=== PATIENT | female | born 1935 | race Caucasian/White ===

== ENCOUNTER 2018-12-24 15:23 | Inpatient (IN) | payer MEDICARE ==
[~2018-12-24] VITALS: Ht 152.4 cm; Wt 64.1 kg
[2018-12-24] MEDS ORDERED: MORPHINE SULFATE 4 MG/ML, 1ML ONE (15:41)
--- NOTE | 2018-12-24 15:56 | NUR ---
Pt medicated per emar, 5 rights observed, clothing removed, radiology notified pt ready
[2018-12-24] MEDS ORDERED: MORPHINE SULFATE 4 MG/ML, 1ML IVPush ONE (16:00)
[2018-12-24] MEDS ORDERED: PLEASE ENTER ALLERGIES MC SCH (16:00)
[2018-12-24] MEDS ORDERED: PLEASE ENTER HEIGHT AND WEIGHT MC SCH (16:00)
[2018-12-24] MEDS ORDERED: SODIUM CHLORIDE FLUSH 10ML SYR IVF ONE (16:00)
[2018-12-24 16:08] LABS: INTERNATIONAL NORMALIZED RATIO 0.96 (0.93-1.1); PROTHROMBIN TIME 10.1 Seconds (9.6-11.5)
[2018-12-24 16:09] LABS: ALANINE AMINOTRANSFERASE 12 U/L (12-78); ALBUMIN 3.5 g/dL (3.4-5.0); ANION GAP 7 mmol/L (5-15); CALCIUM 8.9 mg/dL (8.5-10.1); CHLORIDE 107 mmol/L (98-107); CREATININE 1.32 mg/dL (0.55-1.02)
[2018-12-24 16:12] LABS: ALKALINE PHOSPHATASE 82 U/L (45-117); BILIRUBIN,TOTAL 0.2 mg/dL (0.2-1.0); TOTAL PROTEIN 6.7 g/dL (6.4-8.2)
--- NOTE | 2018-12-24 16:15 | NUR ---
Pt to radiology, will place on pacer pads when back to room, code card at bedside, pt found to be in arrhythmia, possible second degree block. Hr remains above 60bpm, pt denies any cp, dizziness, pt insists she did not pass out and fall but instead she tripped and fell today.
--- NOTE | 2018-12-24 16:23 | NUR ---
Pt back from radiology, pacer pads placed on pt. Pt requesting more pain meds, aware.
[2018-12-24] MEDS ORDERED: HYDROmorphone 2 MG/ML, 1ML ONE (16:34)
[2018-12-24 16:39] LABS: BASOPHILS # (AUTO) 0.03 x10^3/uL (0-0.1); BASOPHILS % (AUTO) 0 % (0-1); EOSINOPHILS # (AUTO) 0.05 x10^3/uL (0-0.4); EOSINOPHILS % (AUTO) 0 % (1-7); LYMPHOCYTES # (AUTO) 1.42 x10^3/uL (1-3.4); LYMPHOCYTES % (AUTO) 11 % (22-44); MD NO; MEAN CORPUSCULAR HEMOGLOBIN 32.3 pg (27.0-34.8); MEAN CORPUSCULAR HGB CONC 33.3 g/dL (32.4-35.8); MEAN CORPUSCULAR VOLUME 96.8 fL (80-100); MEAN PLATELET VOLUME 7.7 fL (7.4-10.4); MONOCYTES % (AUTO) 2 % (2-9); NEUTROPHILS # (AUTO) 10.88 x10^3/uL (1.8-6.8); NEUTROPHILS % (AUTO) 87 % (42-75); PLATELET COUNT 367 x10^3/uL (130-400); RED CELL DISTRIBUTION WIDTH 13.5 % (9.6-15.2)
--- NOTE | 2018-12-24 16:42 | NUR ---
Pt medicated for 10/10 pain per emar, family at bedside, pt reports slightly decreased pain after pain meds.
[2018-12-24] MEDS ORDERED: HYDROmorphone 1 MG/ML, 1ML INJ IV ONE (17:00)
[2018-12-24 17:07] LABS: TROPONIN I < 0.015 ng/mL (0.000-0.045)
--- NOTE | 2018-12-24 17:16 | NUR ---
Pt not tolerating arm splint application, aware, ok to hold on splint, no more pain meds ordered in ED, floor RN notified, will try and have hospitalist orders in prior to transport for pain med administration on floor.
--- NOTE | 2018-12-24 17:16 | NUR ---
Report to [facility].
[2018-12-24] MEDS ORDERED: ONDANSETRON ODT 4 MG PO PRN (18:00)
[2018-12-24] MEDS ORDERED: hydrALAzine 20 MG/ML, 1ML IVPush PRN (18:00)
[2018-12-24] MEDS ORDERED: ACETAMINOPHEN 325 MG TABLET PO PRN (18:00)
[2018-12-24] MEDS ORDERED: POLYETHYLENE GLYCOL 17 GM PACKET PO PRN (18:00)
[2018-12-24] MEDS ORDERED: ONDANSETRON 2MG/ML, 2ML IVPush PRN (18:00)
[2018-12-24] MEDS ORDERED: DOCUSATE 100 MG CAPSULE PO PRN (18:00)
[2018-12-24] MEDS ORDERED: PROMETHAZINE 25 MG/ML, 1ML IM PRN (18:00)
[2018-12-24] MEDS ORDERED: BISACODYL 10 MG SUPP PR PRN (18:00)
--- NOTE | 2018-12-24 18:00 | NUR ---
Cardiology at bedside, pt rhythm in obv a-fib for approx 1 min on monitor.
[2018-12-24] MEDS ORDERED: LISI5TAB7 PO (18:03)
[2018-12-24] MEDS: morphine SULFATE 10 MG/ML, 1ML IVPush PRN ×4 (18:16→23:59)
[2018-12-24 18:26] VITALS: BP 159/62
[2018-12-24 18:37] LABS: FREE T4 (FREE THYROXINE) 1.11 ng/dL (0.76-1.46)
[2018-12-24 18:41] LABS: THYROID STIMULATING HORMONE 3.68 mIU/L (0.358-3.740)
[2018-12-24 19:03] LABS: HEMOGLOBIN A1C 4.2 % (4.2-6.3)
[2018-12-24] MEDS: HYDROcodone/APAP 5/325 TABLET PO PRN ×2 (19:53→23:59)
[2018-12-24] MEDS: SODIUM CHLORIDE 0.9% 1,000 ML IV SCH (20:03)
[2018-12-24] MEDS: PANTOPRAZOLE 40 MG IV IVPush SCH (20:11)
[2018-12-24] MEDS ORDERED: PANT20TA2 PO (20:22)
[2018-12-24] MEDS ORDERED: FLUO10CA13 PO (20:22)
[2018-12-25 02:18] VITALS: BP 130/79
[2018-12-25] MEDS: morphine SULFATE 10 MG/ML, 1ML IVPush PRN ×2 (03:08→07:10)
[2018-12-25] MEDS: HYDROcodone/APAP 5/325 TABLET PO PRN ×2 (05:03→09:16)
[2018-12-25] MEDS: SODIUM CHLORIDE 0.9% 1,000 ML IV SCH (05:03)
[2018-12-25 05:26] LABS: ALBUMIN 2.9 g/dL (3.4-5.0); ANION GAP 5 mmol/L (5-15); CALCIUM 7.8 mg/dL (8.5-10.1); CHLORIDE 114 mmol/L (98-107)
[2018-12-25 05:28] LABS: MEAN CORPUSCULAR HEMOGLOBIN 35.9 pg (27.0-34.8); MEAN CORPUSCULAR HGB CONC 34.6 g/dL (32.4-35.8); MEAN CORPUSCULAR VOLUME 103.5 fL (80-100); MEAN PLATELET VOLUME 7.5 fL (7.4-10.4); PLATELET COUNT 296 x10^3/uL (130-400); RED BLOOD COUNT 2.22 x10^6/uL (3.82-5.3); RED CELL DISTRIBUTION WIDTH 13.4 % (9.6-15.2)
[2018-12-25 05:32] LABS: ALANINE AMINOTRANSFERASE 13 U/L (12-78); ALKALINE PHOSPHATASE 62 U/L (45-117); BILIRUBIN,TOTAL 0.6 mg/dL (0.2-1.0); CHOL/HDL RATIO 2.1; CHOLESTEROL, TOTAL 138 mg/dL (140-239); CREATININE 0.98 mg/dL (0.55-1.02); HDL CHOL % 49 % (28-40); HDL CHOLESTEROL (DIRECT) 67 mg/dL (40-60); LDL CHOLESTEROL,CALCULATED 61 mg/dL (54-169); LDL/HDL RATIO 0.9 (0.5-3.0); TOTAL PROTEIN 5.4 g/dL (6.4-8.2); TRIGLYCERIDES 49 mg/dL (50-200); VLDL CHOLESTEROL 10 mg/dL (0-25)
[2018-12-25 06:10] LABS: BASOPHILS # (AUTO) 0.03 x10^3/uL (0-0.1); BASOPHILS % (AUTO) 0 % (0-1); EOSINOPHILS # (AUTO) 0.01 x10^3/uL (0-0.4); EOSINOPHILS % (AUTO) 0 % (1-7); LYMPHOCYTES # (AUTO) 1.07 x10^3/uL (1-3.4); LYMPHOCYTES % (AUTO) 12 % (22-44); MD SCAN; MONOCYTES # (AUTO) 0.79 x10^3/uL (0.2-0.8); MONOCYTES % (AUTO) 9 % (2-9); NEUTROPHILS # (AUTO) 6.82 x10^3/uL (1.8-6.8); NEUTROPHILS % (AUTO) 78 % (42-75)
[2018-12-25 08:02] VITALS: BP 101/55
[2018-12-25] MEDS ORDERED: LISINOPRIL 5 MG TABLET PO SCH (09:00)
[2018-12-25] MEDS ORDERED: FLUOXETINE 10 MG CAP PO SCH (09:00)
[2018-12-25] MEDS ORDERED: TRANEXAMIC ACID 100 MG/ML, 10ML ONE (11:40)
[2018-12-25] MEDS ORDERED: SUCCINYLCHOLINE 20 MG/ML, 10ML ONE (12:19)
[2018-12-25] MEDS ORDERED: ROCURONIUM 10MG/ML,5ML ONE (12:19)
[2018-12-25] MEDS ORDERED: PHENYLEPHRINE 10 MG/ML ONE (12:19)
[2018-12-25] MEDS ORDERED: FENTANYL PF 250 MCG/5ML ONE (12:20)
[2018-12-25] MEDS ORDERED: ONDANSETRON 2MG/ML, 2ML IV PRN ×2 (13:30→23:00)
[2018-12-25] MEDS ORDERED: hydrALAzine 20 MG/ML, 1ML IV PRN (13:30)
[2018-12-25] MEDS ORDERED: MORPHINE SULFATE 4 MG/ML, 1ML IVPush PRN (13:30)
[2018-12-25] MEDS ORDERED: PROMETHAZINE 25 MG/ML, 1ML IV PRN (13:30)
[2018-12-25] MEDS ORDERED: OXYcodone 5 MG/5 ML ORAL.SOL UDC PO PRN (13:30)
[2018-12-25] MEDS ORDERED: MIDAZOLAM 1 MG/ML, 2ML IV PRN (13:30)
[2018-12-25] MEDS ORDERED: LABETALOL 5MG/ML, 20ML IV PRN (13:30)
[2018-12-25] MEDS ORDERED: MEPERIDINE/PF 25MG/0.5ML IVPush PRN (13:30)
[2018-12-25] MEDS ORDERED: EPHEDRINE 50 MG/ML, 1ML IVPush PRN (13:30)
[2018-12-25] MEDS ORDERED: DIAZEPAM 5 MG/ML, 2ML IVPush PRN (13:30)
[2018-12-25] MEDS ORDERED: ALBUTEROL SULFATE 2.5 MG/3 ML NPPB PRN (13:30)
[2018-12-25] MEDS ORDERED: PROMETHAZINE 12.5 MG SUPP PR PRN (13:30)
[2018-12-25] MEDS ORDERED: HALOPERIDOL 5 MG/ML IV PRN (13:30)
[2018-12-25] MEDS ORDERED: ONDANSETRON ODT 8 MG PO PRN (13:30)
[2018-12-25] MEDS ORDERED: CALCIUM CHLORIDE 10%, 10ML SYR ONE (13:40)
[2018-12-25] MEDS ORDERED: PROPOFOL 10 MG/ML, 20ML ONE (13:41)
[2018-12-25] MEDS ORDERED: GLYCOPYRROLATE 0.2MG/1ML, 5ML ONE (13:41)
[2018-12-25] MEDS ORDERED: DEXAMETHASONE 4 MG/ML, 1ML ONE (13:41)
[2018-12-25] MEDS ORDERED: ONDANSETRON 2MG/ML, 2ML ONE (13:41)
[2018-12-25] MEDS ORDERED: CEFAZOLIN 1,000 MG ONE (13:41)
[2018-12-25] MEDS ORDERED: NALOXONE 0.4 MG/ML, 1ML ONE (15:58)
[2018-12-25] MEDS ORDERED: FENTANYL PF 100 MCG/2ML ONE (16:13)
[2018-12-25] MEDS ORDERED: OXYcodone 5 MG/5 ML ORAL.SOL UDC ONE (16:14)
[2018-12-25] MEDS ORDERED: HYDROmorphone 2 MG/ML, 1ML ONE (16:14)
[2018-12-25] MEDS: FENTANYL PF 100 MCG/2ML IV PRN ×2 (16:46→16:52)
[2018-12-25] MEDS: HYDROmorphone 2 MG/ML, 1ML IVPush PRN ×3 (17:03→17:21)
[2018-12-25] MEDS ORDERED: ALBUTEROL SULFATE 2.5 MG/3 ML ONE (19:10)
[2018-12-25] MEDS ORDERED: EPHEDRINE 50 MG/ML, 1ML ONE (19:11)
[2018-12-25] MEDS: PANTOPRAZOLE 40 MG IV IVPush SCH (21:43)
[2018-12-25 21:53] VITALS: BP_SYST 80; BP_SYST 84; BP_SYST 85; BP_DIAS 42; BP_DIAS 46; BP_DIAS 54
[2018-12-25 22:11] VITALS: BP 96/57
[2018-12-25] MEDS ORDERED: ALUMINUM/MAG/SIMETHICONE 30 ML UDC PO PRN (23:00)
[2018-12-25] MEDS ORDERED: MAGNESIUM HYDROXIDE 8%, 30ML UDC PO PRN (23:00)
[2018-12-25] MEDS ORDERED: ACETAMINOPHEN 325 MG TABLET PO PRN (23:00)
[2018-12-25] MEDS ORDERED: DIPHENHYDRAMINE 25 MG CAPSULE PO PRN (23:00)
[2018-12-25] MEDS: D5%-LACTATED RINGERS 1,000 ML IV SCH (23:00)
[2018-12-25] MEDS ORDERED: LACTATED RINGERS 500 ML IVBOLUS ONE (23:00)
[2018-12-25] MEDS ORDERED: SENNA/DOCUSATE TABLET PO PRN (23:00)
[2018-12-25] MEDS ORDERED: BISACODYL 10 MG SUPP PR PRN (23:00)
[2018-12-25] MEDS ORDERED: HYDROmorphone 2 MG/ML, 1ML IVPush PRN (23:00)
[2018-12-25] MEDS: CEFAZOLIN PMX 2GM/50ML 50 ML IVPB SCH (23:04)
[2018-12-25 23:33] LABS: ALBUMIN 2.7 g/dL (3.4-5.0); ANION GAP 6 mmol/L (5-15); CALCIUM 8.2 mg/dL (8.5-10.1); CHLORIDE 113 mmol/L (98-107); CREATININE 1.47 mg/dL (0.55-1.02)
[2018-12-26] MEDS: HYDROcodone/APAP 7.5-325MG/15ML UDC PO PRN (01:44)
[2018-12-26 01:59] VITALS: BP 110/69
[2018-12-26] MEDS: ALBUTEROL SULFATE 2.5 MG/3 ML NPPB SCH ×3 (06:00→12:00)
[2018-12-26] MEDS: D5%-LACTATED RINGERS 1,000 ML IV SCH ×3 (06:14→23:00)
[2018-12-26 06:19] LABS: MEAN CORPUSCULAR HEMOGLOBIN 33.5 pg (27.0-34.8); MEAN CORPUSCULAR HGB CONC 33.9 g/dL (32.4-35.8); MEAN CORPUSCULAR VOLUME 98.8 fL (80-100); MEAN PLATELET VOLUME 7.9 fL (7.4-10.4); PLATELET COUNT 211 x10^3/uL (130-400); RED BLOOD COUNT 2.37 x10^6/uL (3.82-5.3); RED CELL DISTRIBUTION WIDTH 13.4 % (9.6-15.2)
[2018-12-26 06:40] LABS: BASOPHILS # (AUTO) 0.01 x10^3/uL (0-0.1); BASOPHILS % (AUTO) 0 % (0-1); EOSINOPHILS % (AUTO) 0 % (1-7); LYMPHOCYTES # (AUTO) 0.72 x10^3/uL (1-3.4); LYMPHOCYTES % (AUTO) 8 % (22-44); MD SCAN; MONOCYTES # (AUTO) 0.86 x10^3/uL (0.2-0.8); MONOCYTES % (AUTO) 10 % (2-9); NEUTROPHILS # (AUTO) 7.07 x10^3/uL (1.8-6.8); NEUTROPHILS % (AUTO) 82 % (42-75)
[2018-12-26] MEDS: CEFAZOLIN PMX 2GM/50ML 50 ML IVPB SCH (07:13)
[2018-12-26] MEDS: OXYcodone 5 MG/5 ML ORAL.SOL UDC PO PRN ×3 (07:13→16:41)
[2018-12-26 08:07] VITALS: BP 108/67
[2018-12-26] MEDS ORDERED: BUDESONIDE 0.5 MG/2 ML INHA NPPB SCH (09:00)
[2018-12-26] MEDS: DOCUSATE 100 MG CAPSULE PO SCH ×2 (09:39→21:00)
[2018-12-26] MEDS: MULTIVITAMINS/MINERALS TABLET PO SCH (09:39)
[2018-12-26 12:55] LABS: BASOPHILS # (AUTO) 0.02 x10^3/uL (0-0.1); BASOPHILS % (AUTO) 0 % (0-1); EOSINOPHILS # (AUTO) 0.01 x10^3/uL (0-0.4); EOSINOPHILS % (AUTO) 0 % (1-7); LYMPHOCYTES # (AUTO) 0.86 x10^3/uL (1-3.4); LYMPHOCYTES % (AUTO) 9 % (22-44); MD NO; MEAN CORPUSCULAR HEMOGLOBIN 33.5 pg (27.0-34.8); MEAN CORPUSCULAR HGB CONC 33.7 g/dL (32.4-35.8); MEAN CORPUSCULAR VOLUME 99.3 fL (80-100); MEAN PLATELET VOLUME 7.6 fL (7.4-10.4); MONOCYTES # (AUTO) 0.74 x10^3/uL (0.2-0.8); MONOCYTES % (AUTO) 8 % (2-9); NEUTROPHILS # (AUTO) 7.66 x10^3/uL (1.8-6.8); NEUTROPHILS % (AUTO) 83 % (42-75); PLATELET COUNT 248 x10^3/uL (130-400); RED BLOOD COUNT 2.53 x10^6/uL (3.82-5.3)
[2018-12-26 13:04] LABS: ANION GAP 7 mmol/L (5-15); CALCIUM 8.2 mg/dL (8.5-10.1); CHLORIDE 110 mmol/L (98-107); CREATININE 1.41 mg/dL (0.55-1.02)
[2018-12-26 13:47] VITALS: BP 111/65
[2018-12-26] MEDS ORDERED: ALBUTEROL SULFATE 2.5 MG/3 ML NPPB PRN (14:00)
[2018-12-26 16:20] VITALS: BP 146/80
[2018-12-26 19:00] VITALS: BP 109/67
[2018-12-27 02:00] VITALS: BP 141/79
[2018-12-27 05:20] LABS: ANION GAP 7 mmol/L (5-15); CALCIUM 8.4 mg/dL (8.5-10.1); CHLORIDE 110 mmol/L (98-107); CREATININE 1.23 mg/dL (0.55-1.02)
[2018-12-27] MEDS: OXYcodone 5 MG/5 ML ORAL.SOL UDC PO PRN (05:21)
[2018-12-27 06:01] LABS: MEAN CORPUSCULAR HEMOGLOBIN 33.4 pg (27.0-34.8); MEAN CORPUSCULAR HGB CONC 33.9 g/dL (32.4-35.8); MEAN CORPUSCULAR VOLUME 98.5 fL (80-100); MEAN PLATELET VOLUME 7.7 fL (7.4-10.4); PLATELET COUNT 215 x10^3/uL (130-400); RED BLOOD COUNT 2.45 x10^6/uL (3.82-5.3); RED CELL DISTRIBUTION WIDTH 13.9 % (9.6-15.2)
[2018-12-27 06:24] LABS: MD YES
[2018-12-27 06:26] LABS: BAND#(MANUAL) 0.31 x10^3/uL; BANDS%(MANUAL) 4 % (0-7); LYMPH#(MANUAL) 0.78 x10^3/uL (1-3.4); LYMPHS% (MANUAL) 10 % (22-44); MONOS#(MANUAL) 0.47 x10^3/uL (0.3-2.7); MONOS% (MANUAL) 6 % (2-9); SEG#(MANUAL) 6.24 x10^3/uL (1.8-6.8); SEGS% (MANUAL) 80 % (42-75)
[2018-12-27 06:27] LABS: <RBC MORPHOLOGY> NORMAL; TOXIC GRAN 1+
[2018-12-27 06:28] LABS: <PLATELET ESTIMATE> ADEQUATE; <PLT MORPHOLOGY> NORMAL PLT MORPH
[2018-12-27 06:36] VITALS: BP 93/57
[2018-12-27] MEDS ORDERED: MAGNESIUM SULFATE 3 GM in SODIUM CHLORIDE 0.9% 100 ML IV ONE (07:00)
[2018-12-27] MEDS: D5%-LACTATED RINGERS 1,000 ML IV SCH ×3 (07:00→23:00)
[2018-12-27] MEDS: DOCUSATE 100 MG CAPSULE PO SCH ×2 (08:43→20:43)
[2018-12-27] MEDS: MULTIVITAMINS/MINERALS TABLET PO SCH (08:43)
[2018-12-27] MEDS: HYDROcodone/APAP 7.5-325MG/15ML UDC PO PRN (08:51)
[2018-12-27] MEDS ORDERED: ASPIRIN 81 MG TABLET CHEW PO SCH (10:00)
[2018-12-27 13:04] VITALS: BP 102/62
[2018-12-27] MEDS: THIAMINE 100MG TABLET PO SCH (15:34)
[2018-12-27] MEDS: FOLIC ACID 1 MG TABLET PO SCH (15:34)
[2018-12-27] MEDS: PANTOPRAZOLE 20MG TABLET PO SCH ×2 (15:34→20:43)
[2018-12-27 19:52] VITALS: BP 127/67
[2018-12-27] MEDS: ASPIRIN 81 MG TABLET EC PO SCH (23:04)
[2018-12-28] VITALS (9 sets, daily range): BP systolic 123–156; BP diastolic 57–85
[2018-12-28 05:43] LABS: CHLORIDE 110 mmol/L (98-107)
[2018-12-28] MEDS: D5%-LACTATED RINGERS 1,000 ML IV SCH ×3 (05:46→22:54)
[2018-12-28 06:08] LABS: ALBUMIN 2.3 g/dL (3.4-5.0); ANION GAP 9 mmol/L (5-15); CALCIUM 8.3 mg/dL (8.5-10.1); CREATININE 1.04 mg/dL (0.55-1.02)
[2018-12-28 06:33] LABS: MEAN CORPUSCULAR HEMOGLOBIN 33.3 pg (27.0-34.8); MEAN CORPUSCULAR HGB CONC 33.6 g/dL (32.4-35.8); MEAN CORPUSCULAR VOLUME 99.1 fL (80-100); MEAN PLATELET VOLUME 7.8 fL (7.4-10.4); PLATELET COUNT 224 x10^3/uL (130-400); RED BLOOD COUNT 2.22 x10^6/uL (3.82-5.3); RED CELL DISTRIBUTION WIDTH 14.1 % (9.6-15.2)
[2018-12-28 07:33] LABS: BASOPHILS # (AUTO) 0.01 x10^3/uL (0-0.1); BASOPHILS % (AUTO) 0 % (0-1); EOSINOPHILS # (AUTO) 0.02 x10^3/uL (0-0.4); EOSINOPHILS % (AUTO) 0 % (1-7); LYMPHOCYTES # (AUTO) 1.23 x10^3/uL (1-3.4); LYMPHOCYTES % (AUTO) 18 % (22-44); MD SCAN; MONOCYTES # (AUTO) 0.67 x10^3/uL (0.2-0.8); MONOCYTES % (AUTO) 10 % (2-9); NEUTROPHILS # (AUTO) 5.09 x10^3/uL (1.8-6.8); NEUTROPHILS % (AUTO) 73 % (42-75)
[2018-12-28] MEDS: PANTOPRAZOLE 20MG TABLET PO SCH ×3 (09:00→21:25)
[2018-12-28] MEDS: ASPIRIN 81 MG TABLET EC PO SCH ×3 (09:53→21:25)
[2018-12-28] MEDS: FOLIC ACID 1 MG TABLET PO SCH (09:54)
[2018-12-28] MEDS: DOCUSATE 100 MG CAPSULE PO SCH ×3 (09:54→21:25)
[2018-12-28] MEDS: THIAMINE 100MG TABLET PO SCH (09:54)
[2018-12-28] MEDS: MULTIVITAMINS/MINERALS TABLET PO SCH (09:54)
[2018-12-28] MEDS: HYDROcodone/APAP 7.5-325MG/15ML UDC PO PRN (18:53)
[2018-12-29 01:42] VITALS: BP 137/81
[2018-12-29 05:40] LABS: ALBUMIN 2.3 g/dL (3.4-5.0); ANION GAP 8 mmol/L (5-15); CHLORIDE 107 mmol/L (98-107)
[2018-12-29] MEDS: D5%-LACTATED RINGERS 1,000 ML IV SCH (06:03)
[2018-12-29 06:13] LABS: BASOPHILS # (AUTO) 0.03 x10^3/uL (0-0.1); BASOPHILS % (AUTO) 0 % (0-1); EOSINOPHILS # (AUTO) 0.08 x10^3/uL (0-0.4); EOSINOPHILS % (AUTO) 1 % (1-7); LYMPHOCYTES # (AUTO) 1.38 x10^3/uL (1-3.4); LYMPHOCYTES % (AUTO) 17 % (22-44); MD NO; MEAN CORPUSCULAR HGB CONC 34.2 g/dL (32.4-35.8); MEAN CORPUSCULAR VOLUME 96.4 fL (80-100); MEAN PLATELET VOLUME 7.7 fL (7.4-10.4); MONOCYTES # (AUTO) 0.94 x10^3/uL (0.2-0.8); MONOCYTES % (AUTO) 12 % (2-9); NEUTROPHILS # (AUTO) 5.59 x10^3/uL (1.8-6.8); NEUTROPHILS % (AUTO) 70 % (42-75); PLATELET COUNT 225 x10^3/uL (130-400); RED BLOOD COUNT 2.97 x10^6/uL (3.82-5.3); RED CELL DISTRIBUTION WIDTH 14.3 % (9.6-15.2)
[2018-12-29] MEDS ORDERED: POTASSIUM CHLORIDE 20 MEQ TAB.ER.PRT PO ONE (06:30)
[2018-12-29] MEDS ORDERED: POLY17PO5 PO (06:31)
[2018-12-29] MEDS ORDERED: FOLI-17 PO (06:31)
[2018-12-29] MEDS ORDERED: HYDR-2443 PO (06:31)
[2018-12-29] MEDS ORDERED: PANT20TA3 PO (06:31)
[2018-12-29] MEDS ORDERED: ASPI81TA45 PO (06:31)
[2018-12-29] MEDS ORDERED: THIA100T67 PO (06:31)
[2018-12-29] MEDS ORDERED: MULT-484 PO (06:31)
[2018-12-29] MEDS: THIAMINE 100MG TABLET PO SCH (08:59)
[2018-12-29] MEDS: FOLIC ACID 1 MG TABLET PO SCH (08:59)
[2018-12-29] MEDS: PANTOPRAZOLE 20MG TABLET PO SCH (08:59)
[2018-12-29] MEDS: DOCUSATE 100 MG CAPSULE PO SCH (08:59)
[2018-12-29] MEDS: MULTIVITAMINS/MINERALS TABLET PO SCH (08:59)
[2018-12-29] MEDS: ASPIRIN 81 MG TABLET EC PO SCH (08:59)
[2018-12-29 09:00] VITALS: BP 158/77
== END 2018-12-29 12:23 | DRG 469 ==
LOC: EDBD 15:23 → ED 16:46 → EDIP 17:16 → 5SO 18:18 → 4NOR 12-25 18:23 → 5SO 12-25 19:00 → 4NOR 12-26 15:34 → 5SO 12-26 15:43 → 4NOR 12-26 16:02
PROVIDERS: ADMIT Internal Medicine; ATTEND Internal Medicine
PROC: 03HY32Z Insertion of Monitoring Device into Upper Artery, Percutaneous Approach (ICD-10-PCS; 2018-12-25)
PROC: 30233N1 Transfusion of Nonautologous Red Blood Cells into Peripheral Vein, Percutaneous Approach (ICD-10-PCS; 2018-12-25)
PROC: 0SRR0J9 Replacement of Right Hip Joint, Femoral Surface with Synthetic Substitute, Cemented, Open Approach (ICD-10-PCS; principal; 2018-12-25 12:00)
PROC: 0PSF04Z Reposition Right Humeral Shaft with Internal Fixation Device, Open Approach (ICD-10-PCS; 2018-12-25 12:00)
DX: S72.011A Unspecified intracapsular fracture of right femur, initial encounter for closed fracture (principal); N17.0 Acute kidney failure with tubular necrosis; J96.01 Acute respiratory failure with hypoxia; S42.201A Unspecified fracture of upper end of right humerus, initial encounter for closed fracture; D62 Acute posthemorrhagic anemia; F10.239 Alcohol dependence with withdrawal, unspecified; J98.11 Atelectasis; N18.2 Chronic kidney disease, stage 2 (mild); Z88.6 Allergy status to analgesic agent; Z88.0 Allergy status to penicillin; E83.42 Hypomagnesemia; Y90.9 Presence of alcohol in blood, level not specified; F32.9 Major depressive disorder, single episode, unspecified; I12.9 Hypertensive chronic kidney disease with stage 1 through stage 4 chronic kidney disease, or unspecified chronic kidney disease; I49.1 Atrial premature depolarization; K21.9 Gastro-esophageal reflux disease without esophagitis; Z96.642 Presence of left artificial hip joint; Z96.652 Presence of left artificial knee joint; K44.9 Diaphragmatic hernia without obstruction or gangrene; W01.0XXA Fall on same level from slipping, tripping and stumbling without subsequent striking against object, initial encounter; Y93.01 Activity, walking, marching and hiking; Y99.8 Other external cause status; Y92.89 Other specified places as the place of occurrence of the external cause; Z80.0 Family history of malignant neoplasm of digestive organs; Z87.11 Personal history of peptic ulcer disease
CPT/HCPCS: 36415; 36430; 71045; 72170; 76000; 80048; 80053; 80061; 82040; 82607; 82728; 83036; 83540; 83550; 83735; 84100; 84439; 84443; 84466; 84484; 85014; 85018; 85025; 85610; 85730; 86850; 86900; 86923; 93005; 94640; C1713; G0378; J0690; J1100; J1170; J2310; J2405; J2704; J3010; J3475; J7120; J7613; C1762; C1776; C9113; J0330; J2270; J2370; J7030; J7121; P9016